=== PATIENT | male | born 1965 | race African-American/Black ===

== ENCOUNTER 2024-08-31 16:36 | Inpatient (IN) | payer OTHER ==
[~2024-08-31] VITALS: Ht 182.9 cm; Wt 114.0 kg
[~2024-08-31 16:36] MED LIST: ATOR40TA52 PO; BRIM0.2S17 EACHEYE; BUME2TAB5 PO; CARB0.5D28 EACHEYE; CARV3.1240 PO; DORZ2SOL18 EACHEYE; EMPA1TAB PO; LATA0.008 EACHEYE; MESA400C5 PO; PANT40T PO; SACU1TAB4 PO; SPIR25TA8 PO
--- NOTE | 2024-08-31 17:22 | ED.PDOC ---
History of Present Illness HPI Comments 59 y/o morbidly obese M is [id number] ambulance for c/o nonradiating, substernal chest pain, shortness of breath, nausea, and vomiting, today. Patient reports on sudden and unprovoked onset of 4/10, pressure-like pain, this afternoon, while at rest. Per EMS, patient received 324mg ASA and 1x NTG. He has a reported history of UT, HTN, CHF, CVA, CKD, chronic ulcerative colitis, and cholecystectomy. Patient denies any palpitations, abdominal pain, diarrhea, cough, congestion, fever, chills, or other associated symptoms or modifiers at this time. Time Seen by MD: 16:40 Reviewed Notes: Nurses Notes, Tax Audit Manager Notes, Medications, Allergies Information Source: Patient, Emergency Med Personnel Mode of Arrival: EMS Severity: Moderate Timing: Hours Duration: Since onset Prehospital treatment: 12 Lead EKG, ASA, Residential Door Installer, NTG Past Medical History PAST MEDICAL HISTORY: CHF, CKF, HTN, UT Past Medical History (Other): chronic ulcerative colitis morbid obesity Surgical History: Cholecystectomy, Tonsillectomy Surgical History (Other): eye surgery Family History Family History: No family hx of Cancer, No family hx of DM, No family hx of H eart williams, No family hx of HTN, No family hx ofKidney williams, No family hx of Liver williams, No family hx of Lung williams, No family hx of Stroke Family History (Other): autoimmune disease Social History Smoker: Non-Smoker Alcohol: Occasionally Drugs: Marijuana Lives In: Home Constitutional: denies: chills, diaphoresis, fatigue, fever, malaise, sweats, weakness, others EENTM: denies: blurred vision, double vision, ear bleeding, ear discharge, ear drainage, ear pain, ear ringing, eye pain, eye redness, hearing loss, mouth pain, mouth swelling, nasal discharge, nose bleeding, nose congestion, nose pain, photophobia, tearing, throat pain, throat swelling, voice changes, others Respiratory: reports: shortness of breath; denies: cough, hemoptysis, orthopnea, SOB at rest, SOB with excertion, stridor, wheezing, others Cardiovascular: reports: chest pain; denies: dizzy spells, diaphoresis, Dyspnea on exertion, edema, irregular heart beat, left arm pain, lightheadedness, palpitations, PND, syncope, others Gastrointestinal: reports: nausea, vomiting; denies: abdomen distended, abdominal pain, blood streaked bowels, constipated, diarrhea, dysphagia, difficulty swallowing, hematemesis, melena, poor appetite, poor fluid intake, rectal bleeding, rectal pain, others Genitourinary: denies: burning, dysuria, flank pain, frequency, hematuria, incontinence, penile discharge, penile sore, pain, testicle pain, testicle swelling, urgency, others Neurological: denies: dizziness, fainting, headache, left sided numbness, left sided weakness, numbness, paresthesia, pre-existing deficit, right sided numbness, right sided weakness, seizure, speech problems, tingling, tremors, weakness, others Musculoskeletal: denies: back pain, gout, joint pain, joint swelling, muscle pain, muscle stiffness, neck pain, others Integumetry: denies: bruises, change in color, change in hair/nails, dryness, laceration, lesions, lumps, rash, wounds, others Allergic/Immunocompromised: denies: Difficulty Healing, Frequent Infections, Hives, Itching, others Hematologic/Lymphatic: denies: anemia, blood clots, easy bleeding, easy bruising, swollen glands, others Endocrine: denies: excessive hunger, excessive sweating, excessive thirst, excessive urination, flushing, intolerance to cold, intolerance to heat, unexplained weight gain, unexplained weight loss, others Psychiatric: denies: anxiety, bipolar disorder, depression, hopeless, panic disorder, schizophrenia, sleepless, suicidal, others All Other Systems: Reviewed and Negative Physical Exam General Appearance: Moderate Distress HEENT: Normal ENT Inspection, Pharynx Normal, TMs Normal Neck: Full Range of Motion, Non-Tender, Normal, Normal Inspection Respiratory: Chest Non-Tender, Lungs Clear, No Accessory Muscle Use, No Respiratory Distress, Normal Breath Sounds Cardiovascular: No Edema, No JVD, No Murmur, No Gallop, Normal Peripheral Pulses, Regular Rate/Rhythm Breast Exam: Deferred Gastrointestinal: No Organomegaly, Non Tender, No Pulsatile Mass, Normal Bowel Sounds, Soft Genitalia: Deferred Pelvic: Deferred Rectal: Deferred Extremities: No calf tenderness, Normal capillary refill, Normal inspection, Normal range of motion, Non-tender, No pedal edema Musculoskeletal : Apperance: Normal Neurologic: Alert, customizer II-XII nml as Tested, Motor Weakness, Normal Affect, Normal Mood, No Sensory Deficits Cerebellar Function: Normal Reflexes: Normal Skin: Dry, Normal Color, Warm Lymphatic: No Adenopathy Was a procedure done? Was a procedure done?: No EKG EKG : Pulse Rate (adult): 79 [place]: Normal Cardiac Rhythm: NSR Block: None Hypertrophy: None ST: Normal Differential Dx Considerations may include: UT, PE, ACS, PNA, URI, CHF exacerbation, musculoskeletal pain, gastritis, costochondritis, angina, anxiety, among others X-Ray, Labs, Meds, VS Vital Signs Date Time Temp Pulse Resp B/P (MAP) Pulse Ox O2 Delivery O2 Flow Rate FiO2 08/31/24 17:34 75 08/31/24 17:22 79 08/31/24 16:41 98.0 79 24 147/94 (111) 98 98.0 08/31/24 16:40 79 Lab Test 08/31/24 18:39 08/31/24 17:29 Range/Units Troponin I High Sensitivity 9 7 </=54 ng/L White Blood Count 7.0 4.4-10.8 10^3/uL Red Blood Count 4.14 L 4.5-5.90 10^6/uL Hemoglobin 12.8 L 13.5-17.5 g/dL Hematocrit 38.1 L 41.0-53.0 % Mean Corpuscular Volume 92.1 80.0-100.0 fL Mean Corpuscular Hemoglobin 31.0 28.0-32.0 pg Mean Corpuscular Hemoglobin Concent 33.7 32.0-36.0 g/dL Red Cell Distribution Width 15.0 H 11.8-14.3 % Platelet Count 268 140-450 10^3/uL Mean Platelet Volume 8.1 6.9-10.8 fL Neutrophils (%) (Auto) 47.3 37.0-80.0 % Lymphocytes (%) (Auto) 35.4 10.0-50.0 % Monocytes (%) (Auto) 14.0 H 0.0-12.0 % Eosinophils (%) (Auto) 2.8 0.0-7.0 % Basophils (%) (Auto) 0.5 0.0-2.0 % Neutrophils # (Auto) 3.3 1.6-8.6 10 ^3/uL Lymphocytes # (Auto) 2.5 0.4-5.4 10 ^3/uL Monocytes # (Auto) 1.0 0-1.3 10 ^3/uL Eosinophils # (Auto) 0.2 0-0.8 10 ^3/uL Basophils # (Auto) 0 0-0.2 10 ^3/uL Nucleated Red Blood Cells 0.0 % Sodium Level 135 L 136-145 mmol/L Potassium Level 4.4 3.5-5.1 mmol/L Chloride Level 102 98-107 mmol/L Carbon Dioxide Level 23 20-31 mmol/L Anion Gap 10 5-15 Blood Urea Nitrogen 17 9-23 mg/dL Creatinine 1.65 H 0.700-1.30 mg/dL Glomerular Filtration Rate Calc 47 >90 mL/min BUN/Creatinine Ratio 10.3 10.0-20.0 Serum Glucose 122 H 74-106 mg/dL Calcium Level 10.2 8.7-10.4 mg/dL B-Type Natriuretic Peptide 12.29 0-100 pg/mL IV Hep-Lock was established The chest x-ray shows: IMPRESSION: 1. Left ventricle appears to be enlarged The CBC is within normal limits The chemistry panel shows a creatinine of 1.65 The rest of the CBC and chemistry panel are within normal limits The troponin levels x2 is negative The BNP is within normal limits. At this time, the patient was being admitted to the hospitalist A cardiology consult will be obtained Images Reviewed?: Images reviewed and evaluated by me Time of 1ST Reevaluation: 17:10 Reevaluation 1ST: Unchanged Patient Education/Counseling: Diagnosis, Treatment, Prognosis Family Education/Counseling: No Family Present Departure 1 Departure Time of Disposition: 19:42 Impression: Primary Impression: Acute myocardial ischemia Disposition: 09 ADMITTED INPATIENT Admit to: Tele Condition: Fair Critical Care Note Critical Care Time?: Yes (45 min-critical care time only) Stability Stability form required: Yes Unstable for transfer: Telemetry monitoring (Telemetry monitoring required), ED Physician Assesment (Clinical assesment) Heart Score Heart Score: Heart Score Response (Comments) Value History Highly Suspicious 2 EKG Normal 0 Age 45-64 1 Risk Factors >3 or Hx ASHD 2 Troponin Normal limit 0 Total 5 I personally scribed for MIKE YAN MD ([email or web address]) on 08/31/24 at 17:22. Electronically submitted by Ronak Currie ([email or web address]). MIKE YAN MD Aug 31, 2024 17:22
[2024-08-31 18:02] LABS: Basophils # (auto) 0 10 ^3/uL (0-0.2); Basophils % (auto) 0.5 % (0.0-2.0); Eosinophils # (auto) 0.2 10 ^3/uL (0-0.8); Eosinophils % (auto) 2.8 % (0.0-7.0); Hematocrit 38.1 % (41.0-53.0); Hemoglobin 12.8 g/dL (13.5-17.5); Lymphocytes # (auto) 2.5 10 ^3/uL (0.4-5.4); Lymphocytes % (auto) 35.4 % (10.0-50.0); Mean Corpuscular Hgb Conc. 33.7 g/dL (32.0-36.0); Mean Corpuscular Volume 92.1 fL (80.0-100.0); Neutrophils # (auto) 3.3 10 ^3/uL (1.6-8.6); Neutrophils % (auto) 47.3 % (37.0-80.0); Platelet Count (auto) 268 10^3/uL (140-450); Red Blood Cells 4.14 10^6/uL (4.5-5.90)
[2024-08-31 18:10] LABS: Calcium 10.2 mg/dL (8.7-10.4); Chloride 102 mmol/L (98-107); Potassium 4.4 mmol/L (3.5-5.1)
[2024-08-31 18:11] LABS: Anion Gap 10 (5-15); Carbon Dioxide 23 mmol/L (20-31)
[2024-08-31 18:16] LABS: BUN/Creatinine Ratio 10.3 (10.0-20.0); Blood Urea Nitrogen 17 mg/dL (9-23)
[2024-08-31 18:27] LABS: Glucose 122 mg/dL (74-106); Sodium 135 mmol/L (136-145)
--- NOTE | 2024-08-31 18:28 | DVH ---
CHEST RADIOGRAPH Indication: cp Technique: Single frontal view of the chest was obtained Comparison: None FINDINGS: Heart size is normal but there is prominent left ventricle. There are no infiltrates or effusions. P ulmonary vasculature are within normal limits. Mediastinum is unremarkable : IMPRESSION: 1. Left ventricle appears to be enlarged
[2024-08-31 22:11] LABS: Urine Bacteria None Seen /hpf (None Seen)
[2024-08-31 22:17] LABS: Urine Blood Negative /uL (Negative); Urine Clarity Clear (Clear); Urine Color Yellow (Yellow); Urine Protein, UAD TRACE (Negative); Urine Specific Gravity 1.026 (1.001-1.035); Urine Squamous Epithelial Cell None Seen /hpf (<5); Urine Urobilinogen 2 mg/dL (Negative); Urine WBC 1 /HPF (0-3)
[2024-08-31 22:32] LABS: Cannabinoid Screen, Urine Pos (NEGATIVE)
[2024-08-31 22:35] LABS: Amphetamine Screen, Urine Neg (NEGATIVE); Barbiturate Scree,Urine Neg (NEGATIVE); Benzodiazephine Screen, Urine Neg (NEGATIVE); Cocaine Screen, Urine Neg (NEGATIVE); Opiate Scree,Urine Neg (NEGATIVE); Phencyclidine Screen, Urine Neg (NEGATIVE)
[2024-08-31] MEDS ORDERED: LORazepam 0.5 MG TAB PO PRN (23:00)
[2024-08-31] MEDS ORDERED: ACETAMINOPHEN 325 MG TAB PO PRN (23:00)
[2024-08-31] MEDS ORDERED: NITROGLYCERIN 0.4 MG SL TAB SL PRN (23:00)
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
[2024-08-31 23:34] LABS: Albumin 4.7 g/dL (3.2-4.8); Bilirubin, Direct 0.2 mg/dL (<0.3); Magnesium 2.2 mg/dL (1.6-2.6); Phosphorus 2.7 mg/dL (2.4-5.1)
[2024-08-31 23:35] LABS: Bilirubin, Total 0.7 mg/dL (0.2-1.0)
[2024-08-31 23:46] LABS: Total Protein 8.3 g/dL (5.7-8.2)
[2024-09-01] VITALS (7 sets, daily range): BP systolic 167; BP diastolic 77; PULSE 62–70; RESP 14–23; TEMP 97.7; O2SAT 93–98
[2024-09-01] MEDS: MORPHINE SULFATE INJ 2 MG/ml SYRG IV PRN ×2 (00:40→19:48)
[2024-09-01] MEDS: ONDANSETRON HCL 4 MG/2 ML VIAL IV PRN (00:40)
[2024-09-01] MEDS: TIMOLOL MALEATE 0.25 % OPTH SOL 5ML EACHEYE ONE (00:58)
[2024-09-01] MEDS: DORZOLAMIDE HCL 2% OPTH(EYE) SOL 10ML EACHEYE ONE (00:58)
[2024-09-01] MEDS: PANTOPRAZOLE 40 MG/10 ML VIAL INJ IV ONE (00:58)
[2024-09-01] MEDS: ENOXAPARIN SOD 100 MG/1 ML SYRINGE SC ONE (00:58)
[2024-09-01] MEDS: ATORVASTATIN 20 MG TAB PO ONE (00:59)
[2024-09-01 05:41] LABS: Basophils # (auto) 0 10 ^3/uL (0-0.2); Basophils % (auto) 0.5 % (0.0-2.0); Eosinophils # (auto) 0.2 10 ^3/uL (0-0.8); Eosinophils % (auto) 3.2 % (0.0-7.0); Hematocrit 35.5 % (41.0-53.0); Hemoglobin 11.6 g/dL (13.5-17.5); Lymphocytes # (auto) 2.8 10 ^3/uL (0.4-5.4); Lymphocytes % (auto) 40.2 % (10.0-50.0); Mean Corpuscular Hemoglobin 30.1 pg (28.0-32.0); Mean Corpuscular Hgb Conc. 32.5 g/dL (32.0-36.0); Mean Corpuscular Volume 92.5 fL (80.0-100.0); Monocytes % (auto) 14.2 % (0.0-12.0); Neutrophils # (auto) 2.9 10 ^3/uL (1.6-8.6); Neutrophils % (auto) 41.9 % (37.0-80.0); Nucleated Red Blood Cells % 0.2 %; Platelet Count (auto) 223 10^3/uL (140-450); Red Blood Cells 3.84 10^6/uL (4.5-5.90); Red Cell Distribution Width 14.6 % (11.8-14.3)
[2024-09-01 05:56] LABS: INR 2.86 (0.9-1.15); Partial Thromboplastin Time 48.8 SEC (24.5-34.5); Prothrombin Time 27.3 sec (9.3-11.8)
[2024-09-01] MEDS: DORZOLAMIDE HCL 2% OPTH(EYE) SOL 10ML EACHEYE SCH (06:00)
[2024-09-01 06:07] LABS: Alanine Aminotransferase 26 U/L (7-40); Alkaline Phosphatase 96 U/L (46-116); Anion Gap 9 (5-15); Blood Urea Nitrogen 21 mg/dL (9-23); Calcium 9.4 mg/dL (8.7-10.4); Carbon Dioxide 25 mmol/L (20-31); Chloride 102 mmol/L (98-107); Glucose 100 mg/dL (74-106)
[2024-09-01 06:08] LABS: Albumin 3.9 g/dL (3.2-4.8); Aspartate Aminotransferase 21 U/L (13-40)
[2024-09-01 06:09] LABS: Bilirubin, Total 0.9 mg/dL (0.2-1.0); Sodium 136 mmol/L (136-145)
[2024-09-01] MEDS ORDERED: ONDANSETRON HCL 4 MG/2 ML VIAL IV PRN (10:00)
[2024-09-01] MEDS ORDERED: LOPERAMIDE HCL 2 MG CAP/TAB PO ONE (10:15)
[2024-09-01] MEDS: SACUBITRIL-VALSARTAN 24mg/26mg TAB PO SCH (10:19)
[2024-09-01] MEDS: hydrALAZINE HCL 25 MG TAB PO SCH (10:58)
[2024-09-01] MEDS: CARVEDILOL 12.5 MG TAB PO ONE (10:58)
[2024-09-01] MEDS: ENOXAPARIN SOD 100 MG/1 ML SYRINGE SC SCH (10:59)
[2024-09-01] MEDS: TIMOLOL MALEATE 0.25 % OPTH SOL 5ML EACHEYE SCH (10:59)
[2024-09-01] MEDS: PANTOPRAZOLE 40 MG/10 ML VIAL INJ IV SCH (10:59)
[2024-09-01] MEDS: ONDANSETRON HCL 4 MG/2 ML VIAL IV ONE (10:59)
[2024-09-01] MEDS: SPIRONOLACTONE 25 MG TAB PO SCH (10:59)
[2024-09-01] MEDS: MESALAMINE 400mg Delayed Release Cap PO SCH (11:00)
[2024-09-01] MEDS: ERGOCALCIFEROL 50,000 UNIT(1.25MG) CAP PO SCH (12:37)
[2024-09-01] MEDS: SODIUM CHLORIDE 0.9% 250 ML IV ONE (13:17)
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
[2024-09-01] MEDS: BACLOFEN 10 MG TAB PO ONE (17:55)
[2024-09-01] MEDS: BACLOFEN 10 MG TAB PO PRN (19:40)
[2024-09-01] MEDS: LATANOPROST 0.005 % OPTH(EYE) SOL 2.5ML EACHEYE SCH (22:00)
[2024-09-02] VITALS (10 sets, daily range): BP systolic 106–136; BP diastolic 40–69; PULSE 44–80; RESP 16–18; TEMP 36.6; O2SAT 94–99
[2024-09-02] MEDS ORDERED: WARF-66 PO (00:05)
[2024-09-02] MEDS ORDERED: [UNRECOGNIZED DRUG - CODE] EX (00:05)
[2024-09-02] MEDS ORDERED: MULT-1047 PO (00:05)
[2024-09-02] MEDS ORDERED: CARV25TA55 PO (00:05)
[2024-09-02] MEDS ORDERED: HYDR25TA88 PO (00:05)
[2024-09-02] MEDS: CARVEDILOL 12.5 MG TAB PO SCH (00:41)
[2024-09-02] MEDS: ATORVASTATIN 20 MG TAB PO SCH (00:44)
[2024-09-02] MEDS: DOCUSATE SOD 100 MG CAP PO ONE (07:03)
[2024-09-02 08:11] LABS: Basophils # (auto) 0 10 ^3/uL (0-0.2); Basophils % (auto) 0.5 % (0.0-2.0); Eosinophils # (auto) 0.2 10 ^3/uL (0-0.8); Hematocrit 39.4 % (41.0-53.0); Hemoglobin 12.7 g/dL (13.5-17.5); Lymphocytes # (auto) 2.1 10 ^3/uL (0.4-5.4); Lymphocytes % (auto) 34.3 % (10.0-50.0); Mean Corpuscular Hemoglobin 30.5 pg (28.0-32.0); Mean Corpuscular Hgb Conc. 32.3 g/dL (32.0-36.0); Mean Corpuscular Volume 94.6 fL (80.0-100.0); Monocytes # (auto) 0.6 10 ^3/uL (0-1.3); Monocytes % (auto) 10.4 % (0.0-12.0); Neutrophils # (auto) 3.1 10 ^3/uL (1.6-8.6); Neutrophils % (auto) 50.8 % (37.0-80.0); Nucleated Red Blood Cells % 0.1 %; Platelet Count (auto) 225 10^3/uL (140-450); Red Blood Cells 4.16 10^6/uL (4.5-5.90); Red Cell Distribution Width 14.9 % (11.8-14.3); White Blood Cell 6.1 10^3/uL (4.4-10.8)
[2024-09-02 08:27] LABS: Albumin 4.2 g/dL (3.2-4.8); Anion Gap 9 (5-15); BUN/Creatinine Ratio 11.8 (10.0-20.0); Blood Urea Nitrogen 18 mg/dL (9-23); Calcium 10.1 mg/dL (8.7-10.4); Carbon Dioxide 24 mmol/L (20-31); Chloride 102 mmol/L (98-107); Glucose 102 mg/dL (74-106); Potassium 4.7 mmol/L (3.5-5.1); Total Protein 7.2 g/dL (5.7-8.2)
[2024-09-02 08:28] LABS: Alanine Aminotransferase 55 U/L (7-40); Alkaline Phosphatase 119 U/L (46-116); Aspartate Aminotransferase 52 U/L (13-40); Bilirubin, Total 1.2 mg/dL (0.2-1.0); Sodium 135 mmol/L (136-145)
--- NOTE | 2024-09-02 11:29 | ECG ---
[facility] Test Date: 2024-08-31 Test Time: 16:40:26 Pat Name: Isidro Heath Department: ED Room: 0298T A Gender: M Early Childhood Coordinator: elo : 1965 Requested By: MIKE YAN Order Number: [id number] Reading MD: Kilo Quintana Measurements Intervals [place] Rate: 79 P: 44 PA: 160 QRS: -63 QRSD: 94 T: 55 QT: 386 QTc: 443 Interpretive Statements Sinus rhythm Inferior infarct, old, LEFT AXIS DEVIATION Abnormal lateral Q waves Anterior infarct, old Electronically Signed On 09-03-2024 13:41:41 PDT by Kilo Quintana Please click the below link to view image of tracing.
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
--- NOTE | 2024-09-02 13:14 | DVHSR ---
APPROVED REPORT EXAM: Two-dimensional and M-mode echocardiogram with Doppler and color Doppler. Blood Pressure: 135/68 mmHg INDICATION CHF RISK FACTORS Height: 71, Weight: 229 DIMENSIONS LVDd4.7 (3.8-5.7cm)LA (2D)4.1 (1.9-4.0cm)Aortic Root3.7 (2.0-3.7cm) LVDs3.0 (2.5-4.0cm)LA (MM) (1.9-4.0cm)Aortic Cusp Exc2.2 (1.5-2.0cm) EF (%) 65.0 (55-70%)Rt. Atrium4.3 (1.9-4.0cm)Asc. Aorta cm IVSd1.4 (0.7-1.1cm)RV (D) (1.8-2.4cm) PWd1.3 (0.7-1.1cm) Mitral Valve MitralMitral Stenosis E wave0.78m/sMV Mean GR.2mmHg A wave0.94m/sMV Peak GR.105mmHg E/A ratio0.82D MVAcm2 DECEL [id number] 1/2 [id number] IVRTmsDop MVA1.97cm2 Aortic Valve Aortic ValveAortic Stenosis V11.17m/Ibrahima Mean GR.5mmHg V21.55m/Ibrahima Peak GR.10mmHg LVOT Diameter2.4 (1.8-2.4cm)Doppler AVA3.41cm2 AI P 1/2 Fnct942.12ms Pulmonic Valve V21.12m/s Tricuspid Valve TR Velocity2.21m/s [id number] Conclusion Technically good study. Sinus rhythm. Concentric LVH with left atrial enlargement. Valves appear to be structurally normal. EF of 55-60% with normal RV function. Mild aortic insufficiency. No pericardial effusion masses or vegetations.
[2024-09-02] MEDS: METOCLOPRAMIDE HCL 5MG/ml INJ 2ml VIAL IV ONE (14:22)
--- NOTE | 2024-09-02 15:04 | ECG ---
[facility] Test Date: 2024-08-31 Test Time: 17:34:11 Pat Name: Isidro Heath Department: ER Room: 0298T A Gender: M Attache: GP : 1965 Requested By: MIKE YAN Order Number: [id number] Reading MD: Kilo Quintana Measurements Intervals [place] Rate: 75 P: 47 AR: 150 QRS: -50 QRSD: 100 T: -24 QT: 388 QTc: 434 Interpretive Statements Sinus rhythm LAD, consider left anterior fascicular block Probable anterolateral infarct, old Baseline wander in lead(s) V1,V2,V3,V4,V5 Electronically Signed On 09-03-2024 13:41:49 PDT by Kilo Quintana Please click the below link to view image of tracing.
[2024-09-03] MEDS ORDERED: DOCUSATE SOD 100 MG CAP PO PRN (10:00)
== END 2024-09-02 15:36 | disposition home or self-care (01) | DRG 203 ==
LOC: EDBD 16:36 → ER 16:36 → OVERFLOW 22:49 → TELE-WESTW 09-01 22:03
PROVIDERS: ADMIT Student in an Organized Health Care Education/Training Program; ATTEND Student in an Organized Health Care Education/Training Program
PROC: 5A09357 Assistance with Respiratory Ventilation, Less than 24 Consecutive Hours, Continuous Positive Airway Pressure (ICD-10-PCS; principal; 2024-09-01)
PROC: 5A09357 Assistance with Respiratory Ventilation, Less than 24 Consecutive Hours, Continuous Positive Airway Pressure (ICD-10-PCS; 2024-09-02)
DX: M94.0 Chondrocostal junction syndrome [Tietze] (principal); N17.0 Acute kidney failure with tubular necrosis; I42.8 Other cardiomyopathies; I13.0 Hypertensive heart and chronic kidney disease with heart failure and stage 1 through stage 4 chronic kidney disease, or unspecified chronic kidney disease; K44.9 Diaphragmatic hernia without obstruction or gangrene; K51.90 Ulcerative colitis, unspecified, without complications; I50.22 Chronic systolic (congestive) heart failure; N18.30 Chronic kidney disease, stage 3 unspecified; G47.33 Obstructive sleep apnea (adult) (pediatric); I25.10 Atherosclerotic heart disease of native coronary artery without angina pectoris; E66.01 Morbid (severe) obesity due to excess calories; E55.9 Vitamin D deficiency, unspecified; H40.9 Unspecified glaucoma; E78.5 Hyperlipidemia, unspecified; Z60.2 Problems related to living alone; I25.2 Old myocardial infarction; Z86.73 Personal history of transient ischemic attack (TIA), and cerebral infarction without residual deficits; Z90.49 Acquired absence of other specified parts of digestive tract; Z79.899 Other long term (current) drug therapy; Z85.528 Personal history of other malignant neoplasm of kidney; Z59.00 Homelessness unspecified
CPT/HCPCS: 36415; 71045; 80048; 80053; 80061; 80076; 80307; 81001; 82306; 82607; 83036; 83735; 83880; 84100; 84443; 84484; 85025; 85610; 85730; 93005; 93306; 94660; 99291; G0378; J2405; J2470

== ENCOUNTER 2025-05-11 20:10 | Inpatient (IN) | payer OTHER ==
[~2025-05-11] VITALS: Ht 182.9 cm; Wt 117.7 kg
[~2025-05-11 20:10] MED LIST changes: +CARV25TA55 PO; +ERGO1CAP12 PO; +FURO1TAB31 PO; +HYDR25TA88 PO; +METH4PAK PO; +METO25TA93 PO; +MULT-1047 PO; +WARF-66 PO; +[UNRECOGNIZED DRUG - CODE] EX
[2025-05-12] VITALS (7 sets, daily range): BP systolic 118–150; BP diastolic 71–85; PULSE 61–106; RESP 15–20; TEMP 97.3–98.1; O2SAT 93–97
--- NOTE | 2025-05-12 00:34 | ED.PDOC ---
History of Present Illness HPI Comments 60-year-old male who presents with chief complaint of lower abdominal pain, with the associated nausea, vomiting, fever, and chest wall pain. Pertinent history of chronic ulcerative colitis. Patient endorses on sudden onset of symptoms after having a bowel movement, yesterday morning, at 11:00 a.m.. Patient has a 7.5/10 in severity. Patient reports taking medication for nausea [facility] arrival. He denies on having any current nausea, bloody or bilious vomitus, diarrhea, or further acute symptoms. REVIEW OF SYSTEMS: General: Fever, no chills, or fatigue HEENT: No sore throat, no earache, no congestion, no neck pain. Cardiac: Chest pain. No palpitations. Lungs: No shortness of breath, no cough. GI: Abdominal pain, nausea, vomiting, no diarrhea : No dysuria, frequency, or urgency. No hematuria. Musculoskeletal: No joint pain , no joint swelling, no extremity edema. Skin: No rash, no itching. Neuro: No headache, no dizziness, no weakness (And as stated in HPI) PHYSICAL EXAM: General: Awake, alert and oriented. No acute distress. Skin: Skin in warm, dry and intact. Appropriate color for ethnicity. HEENT: The head is normocephalic and atraumatic. Conjunctivae are clear without exudates or hemorrhage. Sclera is non-icteric. Eyelids are normal in appearance without swelling or lesions. Oral mucosa is pink and moist Neck: The neck is supple with normal range of motion. No JVD. Cardiac: Heart rate and rhythm are normal. No murmurs, gallops, or rubs are auscultated. Respiratory: No signs of respiratory distress. Lung sounds are clear in all lobes bilaterally without rales, rhonchi, or wheezes. Abdominal: Lower abdomen tenderness. Otherwise remaining abdomen is soft, nontender, without distention, guarding or rigidity. Bowel sounds are present and normoactive in all four quadrants. Extremities: Lower extremities without edema. Neurological: The patient is awake, alert and oriented to person, place, and time with normal speech. Speech is clear. There is no facial asymmetry. Psychiatric: Appropriate mood and affect. Good judgement and insight. Chief Complaint: Abdominal Pain Time Seen by MD: 23:44 Reviewed Notes: Nurses Notes, Medications, Allergies Allergies: Coded Allergies: No Known Drug Allergy (Verified Allergy, Unknown, 09/09/24) Home Meds Active Scripts Ergocalciferol (Vitamin D) 50,000 Unit Cap, [address] UNIT PO QWEEKLY for 5 Days, #5 CAP Prov:CARLOSWENDY PETERS RESIDENT 03/08/25 Furosemide (Lasix) 40 Mg Tab, 40 MG PO DAILY for 30 Days, #30 TAB 1 Refill Prov:NANDINI ALVARADO RESIDENT 03/08/25 Metoprolol Succinate (Metoprolol Succinate Er) 25 Mg Tab, 1 TAB PO DAILY for 30 Days, #30 TAB 3 Refills Prov:NANDINI ALVARADO RESIDENT 03/08/25 Methylprednisolone (Medrol Dosepak) 4 Mg Guilherme, 4 MG PO UD, #21 TAB UAD Prov:IRINA ALVARADORA RESIDENT 03/08/25 Reported Medications Empagliflozin (Jardiance) 10 Mg Tab, 10 MG PO DAILY, TAB 10/29/24 Spironolactone (Spironolactone) 25 Mg Tab, 1 TAB PO DAILY, #90 TAB 1 Refill 10/29/24 Sacubitril-Valsartan (Entresto 97-103 mg) 1 Tab Tab, 1 TAB PO BID, TAB 10/29/24 Folic Acid (Folic Acid) 1 Mg Tab, 1 MG PO DAILY for 30 Days, MG 10/29/24 Rivaroxaban (XARELTO) 20 Mg Tab, 20 MG PO DAILY, TAB 10/29/24 Mesalamine (DELZICOL) 400 Mg Cap, 1200 MG PO BID, CAP 10/29/24 Information Source: Patient, Emergency Med Personnel Mode of Arrival: EMS Severity: Moderate Timing: Hours Duration: Since onset Prehospital treatment: 12 Lead EKG, Lead Advisor, Treatment Past Medical History PAST MEDICAL HISTORY: CHF, CVA, High Lipids, HTN Past Medical History (Other): Ulcerative colitis Surgical History: Cholecystectomy, Tonsillectomy Family History Family History: Reviewed,noncontributory to illness, Unknown Social History Smoker: Non-Smoker Alcohol: Occasionally Drugs: Marijuana Lives In: Home Was a procedure done? Was a procedure done?: No Differential Dx Considerations may include: Differential diagnoses considered include: Abdominal aortic aneurysm, DC, esophageal rupture, intestinal obstruction, mesenteric ischemia, perforated viscus or solid organ rupture, CHF with hepatomegaly, pneumonia, abscess, appendicitis, biliary disease, diverticulitis, gastritis, gastroenteritis, hepatitis, hernia, inflammatory bowel disease, pancreatitis, peptic ulcer disease, urinary tract infection, ureteral colic, ulcerative colitis, constipation, GERD, irritable syndrome, abdominal wall pain, nonspecific abdominal pain, herpes zoster, nephrolithiasis. [ ]Also ruptured ectopic , ovarian torsion/cyst, tubo-ovarian abscess, PID, endometriosis, mittleschmerz. X-Ray, Labs, Meds, VS Vital Signs Date Time Temp Pulse Resp B/P (MAP) Pulse Ox O2 Delivery O2 Flow Rate FiO2 05/12/25 03:23 86 18 156/92 05/11/25 22:41 98.3 93 14 134/81 (98) 96 98.3 05/11/25 20:20 99.7 88 22 115/75 96 99.7 Lab Test 05/12/25 05:43 05/12/25 02:18 05/12/25 00:32 Range/Units White Blood Count Pending 8.4 4.4-10.8 10^3/uL Red Blood Count Pending 4.01 L 4.5-5.90 10^6/uL Hemoglobin Pending 12.4 L 13.5-17.5 g/dL Hematocrit Pending 37.2 L 41.0-53.0 % Mean Corpuscular Volume Pending 92.7 80.0-100.0 fL Mean Corpuscular Hemoglobin Pending 31.0 28.0-32.0 pg Mean Corpuscular Hemoglobin Concent Pending 33.4 32.0-36.0 g/dL Red Cell Distribution Width Pending 14.7 H 11.8-14.3 % Platelet Count Pending 283 140-450 10^3/uL Mean Platelet Volume Pending 7.6 6.9-10.8 fL Neutrophils (%) (Auto) Pending 51.5 37.0-80.0 % Lymphocytes (%) (Auto) Pending 33.3 10.0-50.0 % Monocytes (%) (Auto) Pending 11.0 0.0-12.0 % Basophils (%) (Auto) Pending 1.0 0.0-2.0 % Neutrophils # (Auto) Pending 4.3 1.6-8.6 10 ^3/uL Lymphocytes # (Auto) Pending 2.8 0.4-5.4 10 ^3/uL Monocytes # (Auto) Pending 0.9 0-1.3 10 ^3/uL Sodium Level Pending 134 L 136-145 mmol/L Potassium Level Pending 3.9 3.5-5.1 mmol/L Chloride Level Pending 102 98-107 mmol/L Carbon Dioxide Level Pending 20 20-31 mmol/L Anion Gap Pending 12 5-15 Blood Urea Nitrogen Pending 11 9-23 mg/dL Creatinine Pending 1.44 H 0.700-1.30 mg/dL Glomerular Filtration Rate Calc Pending 55 >90 mL/min BUN/Creatinine Ratio Pending 7.6 L 10.0-20.0 Serum Glucose Pending 118 H 74-106 mg/dL Calcium Level Pending 9.3 8.7-10.4 mg/dL Total Bilirubin Pending Aspartate Amino Transferase (AST) Pending Alanine Aminotransferase (ALT) Pending Alkaline Phosphatase Pending Total Protein Pending Albumin Pending Lactic Acid Level 2.1 *H 2.4 *H 0.4-2.0 mmol/L Eosinophils (%) (Auto) 3.2 0.0-7.0 % Eosinophils # (Auto) 0.3 0-0.8 10 ^3/uL Basophils # (Auto) 0.1 0-0.2 10 ^3/uL Nucleated Red Blood Cells 0.0 % B-Type Natriuretic Peptide Pending Lipase 44 12-53 U/L Current Medications Medications (Trade) Dose Ordered Sig/Estevan Route Start Time Stop Time Status Last Admin Morphine Sulfate 2 mg ONCE ONCE IV 05/12/25 00:30 05/12/25 00:31 DC 05/12/25 03:23 Sodium Chloride (Saline Lock Ns) 10 ml Q8HR IV 05/12/25 06:00 05/12/25 05:[address] [address] Ph: [phone] DIAGNOSTIC IMAGING Diagnostic Imaging Report : [id number] Signed PATIENT: AMEILA PRADO ACCT: [id number] UNIT: [id number] : 1965 LOC: ER ROOM / BED: / AGE / SEX: 60 / M ADM STATUS: REG ER SERVICE ORDERING PHYSICIAN: MALLY CALLAWAY MD PROCEDURE(s): ABPL - CT AB PEL WO CON-NO ORAL OR IV REASON: Lower abdominal pain, diarrhea, history ulcerative colitis ORDER NUMBER(s): [id number], ACCESSION NUMBER(s): [id number] EXAM: CT CT AB PEL WO CON-NO ORAL OR IV HISTORY: Lower abdominal pain, diarrhea, history ulcerative colitis COMPARISON STUDY: CT CT AB PEL WO CON-NO ORAL OR IV on DOS: 03/03/25, CT CT AB PEL WO CON-NO ORAL OR IV on DOS: 11/24/24, CT CT AB PEL WO CON-NO ORAL OR IV on DOS: 09/09/24 TECHNIQUE: Multidetector CT of the abdomen and pelvis was performed from lung bases to pubic symphysis. Imaging was performed without IV contrast. Axial, coronal, and sagittal multiplanar reformats were obtained from the axial data set by the technologist. RADIATION DOSE: CTDI vol 22.6 mGy. DLP 1370.96 mGy.cm FINDINGS: Limited evaluation of the solid organs in the absence of IV contrast. Evaluation is also degraded by motion artifact. Lungs: The lung bases are clear. Liver: Diffuse hypoattenuation of the liver suggestive of hepatic steatosis. Spleen: Unremarkable. Pancreas: Unremarkable. Gallbladder: Prior cholecystectomy. Adrenals: Unremarkable Kidneys: Unremarkable. Pelvic Viscera: Mild prostatomegaly. Vasculature: Unremarkable. Retroperitoneum: Unremarkable. Bowel: Colonic diverticulosis without CT evidence of diverticulitis. No bowel obstruction. Small hiatal hernia. The appendix is normal. Portions of the bowel are decompressed, limiting assessment. Musculoskeletal: Unremarkable. Soft tissues: Tiny fat containing umbilical hernia. IMPRESSION: 1. No acute abdominopelvic abnormality. 2. Incidental findings as detailed. ATED BY: BETSEY GALLAGHER MD DICTATED DATE/TIME: 05/12/25146 SIGNED BY: BETSEY GALLAGHER MD SIGNED DATE/TIME: 05/12/25146 CC: Time of 1ST Reevaluation: 00:33 Reevaluation 1ST: Unchanged Patient Education/Counseling: Other (Need for hospital admission) Family Education/Counseling: No Family Present SEPSIS Sepsis Screen Date sepsis recognized/suspect: May 11, 2025 Time Sepsis recognized/suspect: 2019 Recent Procedure: No On Antibiotic Therapy: No Respiratory Rate >20: No Heart Rate >90: No Temp<36 C (96.8 F) or >38.3 C: No SBP <90 or MAP <65 mmHG: No New Acute Mental Status Change: No Is the patient on CPAP, BIPAP,: No Physician Orders Urinalysis (05/12/25 00:25) Ct Ab Pel Wo Con-No Oral Or Iv (05/12/25 00:25) Complete Blood Count (05/12/25 04:59) Comprehensive Metabolic Panel (05/12/25 04:59) Metoprolol Tartrate Tablet (Lopressor Ta (05/12/25 10:00) Clonidine Hcl Tablet (Catapres Tablet) (05/12/25 05:00) Aspirin Chewable Tablet (05/12/25 10:00) B-Type Natriuretic Peptide (05/12/25 04:59) Allergies (05/12/25 04:59) Code Status (05/12/25 04:59) Sodium Chloride Lock (Saline Lock Ns) (05/12/25 06:00) Oxygen Per Hour (05/12/25 04:59) Hydrocodone-Acet 5/325mg Tab ([place] 5/32 (05/12/25 05:00) Ondansetron Hcl (Zofran) (05/12/25 05:00) Docusate Sodium Capsule (Colace Capsule) (05/12/25 05:00) Complete Blood Count (05/13/25 04:00) Comprehensive Metabolic Panel (05/13/25 04:00) Condition: Serious (05/12/25 04:59) Acetaminophen Tablet (Tylenol Tablet) (05/12/25 05:00) Clear Liq Diet (05/12/25 Breakfast) Bedrest With Bathroom Privileg (05/12/25 04:59) Maintain Bed Rest (05/12/25 04:59) Sequential Compression Device (05/12/25 ) Vital Signs Date Time Temp Pulse Resp B/P (MAP) Pulse Ox O2 Delivery O2 Flow Rate FiO2 05/12/25 03:23 86 18 156/92 05/11/25 22:41 98.3 93 14 134/81 (98) 96 98.3 05/11/25 20:20 99.7 88 22 115/75 96 99.7 Laboratory Tests Test 05/12/25 00:32 05/12/25 02:18 05/12/25 05:43 Lactic Acid Level 2.4 mmol/L (0.4-2.0) *H 2.1 mmol/L (0.4-2.0) *H White Blood Count 8.4 10^3/uL (4.4-10.8) Pending Medications Medications Dose Ordered Sig/Estevan Route Start Time Stop Time Status Last Admin Dose Admin Morphine Sulfate 2 mg ONCE ONCE IV 05/12/25 00:30 05/12/25 00:31 DC 05/12/25 03:23 Sodium Chloride 10 ml Q8HR IV 05/12/25 06:00 05/12/25 05:17 Departure 1 Departure Time of Disposition: 03:24 Impression: Primary Impression: Acute ulcerative colitis Disposition: ADMITTED INPATIENT Condition: Stable Comments MDM: Extensive evaluation was performed in attempt to identify or rule out: (See differential diagnosis section) The following tests were ordered, and results were reviewed by me and discussed with patient: (See diagnostic results section) The following test were independently interpreted by me: N lipase, lactic acid reflux, CBC, UA, BMP I reviewed and agreed with the following test results read by other providers: CT abdomen and pelvis without contrast I reviewed the following notes from the pt's past medical encounters: March 03, 2025 encounter for ulcer colitis flare-up Additional information was gathered from interviewing the following independent historians: N/A Discussion of management or test interpretation with external physician/other qualified health home health care physician: N/A Addressed [ ]one or more chronic illnesses with severe exacerbation, progression, or side effects of treatment: [ ]an acute or chronic illness that poses a threat to life or bodily function: [ ] Decision regarding hospitalization or escalation of hospital level of care: Risk and benefits of admission for further treatment of patient's condition was considered. Due to patient's current clinical condition, high risk of decline and poor outcome if discharged and need for further inpatient management and monitoring, patient will be admitted to the hospital. Drug therapy requiring intensive monitoring for toxicity: N/A Parenteral controlled substances: N/A Decision regarding elective major surgery with identified patient or procedure risk factors: N/A Decision regarding emergency major surgery: N/A Decision not to resuscitate or to de-escalate care because of poor prognosis: N/A Diagnosis or treatment significantly limited by social determinants of health: N/A Decision regarding hospitalization or escalation of hospital level of care: Risks and benefits of admission for further treatment of patient's condition was considered however due to patient's stable condition patient will be discharged to follow up closely or return to care for worsening of condition or inability to follow up. Critical Care Note Critical Care Time?: No Stability Stability form required: No Heart Score Heart Score: Heart Score Response (Comments) Value History N/A 0 EKG N/A 0 Age N/A 0 Risk Factors N/A 0 Troponin N/A 0 Total 0 I personally scribed for MALLY CALLAWAY MD ([email or web address]) on 05/12/25 at 00:34. Electronically submitted by Ronak Currie ([email or web address]). I personally scribed for MALLY CALLAWAY MD ([email or web address]) on 05/12/25 at 05:58. Electronically submitted by Ronak Currie ([email or web address]). MALLY CALLAWAY MD May 12, 2025 00:34
[2025-05-12 00:49] LABS: Hematocrit 37.2 % (41.0-53.0); Hemoglobin 12.4 g/dL (13.5-17.5); Mean Corpuscular Hemoglobin 31.0 pg (28.0-32.0); Mean Corpuscular Volume 92.7 fL (80.0-100.0); Nucleated Red Blood Cells % 0.0 %
[2025-05-12 00:57] LABS: Chloride 102 mmol/L (98-107); Potassium 3.9 mmol/L (3.5-5.1)
[2025-05-12 00:58] LABS: Anion Gap 12 (5-15)
[2025-05-12 00:59] LABS: Calcium 9.3 mg/dL (8.7-10.4); Carbon Dioxide 20 mmol/L (20-31); Sodium 134 mmol/L (136-145)
[2025-05-12 01:03] LABS: BUN/Creatinine Ratio 7.6 (10.0-20.0); Blood Urea Nitrogen 11 mg/dL (9-23)
[2025-05-12 01:04] LABS: Lipase 44 U/L (12-53)
[2025-05-12 01:15] LABS: Glucose 118 mg/dL (74-106)
[2025-05-12 01:16] LABS: Lactic Acid w/Reflex 2.4 mmol/L (0.4-2.0)
--- NOTE | 2025-05-12 01:49 | DVH ---
EXAM: CT CT AB PEL WO CON-NO ORAL OR IV HISTORY: Lower abdominal pain, diarrhea, history ulcerative colitis COMPARISON STUDY: CT CT AB PEL WO CON-NO ORAL OR IV on DOS: 03/03/25, CT CT AB PEL WO CON-NO ORAL OR IV on DOS: 11/24/24, CT CT AB PEL WO CON-NO ORAL OR IV on DOS: 09/09/24 TECHNIQUE: Multidetector CT of the abdomen and pelvis was performed from lung bases to pubic symphysis. Imaging was performed without IV contrast. Axial, coronal, and sagittal multiplanar reformats were obtained from the axial data set by the technologist. RADIATION DOSE: CTDI vol 22.6 mGy. DLP 1370.96 mGy.cm FINDINGS: Limited evaluation of the solid organs in the absence of IV contrast. Evaluation is also degraded by motion artifact. Lungs: The lung bases are clear. Liver: Diffuse hypoattenuation of the liver suggestive of hepatic steatosis. Spleen: Unremarkable. Pancreas: Unremarkable. Gallbladder: Prior cholecystectomy. Adrenals: Unremarkable Kidneys: Unremarkable. Pelvic Viscera: Mild prostatomegaly. Vasculature: Unremarkable. Retroperitoneum: Unremarkable. Bowel: Colonic diverticulosis without CT evidence of diverticulitis. No bowel obstruction. Small hiatal hernia. The appendix is normal. Portions of the bowel are decompressed, limiting assessment. Musculoskeletal: Unremarkable. Soft tissues: Tiny fat containing umbilical hernia. IMPRESSION: 1. No acute abdominopelvic abnormality. 2. Incidental findings as detailed.
[2025-05-12] MEDS: MORPHINE SULFATE INJ 2 MG/ml SYRG IV ONE (03:23)
[2025-05-12] MEDS: MORPHINE SULFATE 4 MG/ML SYR/VIAL ONE (03:25)
[2025-05-12] MEDS ORDERED: DOCUSATE SOD 100 MG CAP PO PRN (05:00)
[2025-05-12] MEDS ORDERED: ACETAMINOPHEN 325 MG TAB PO PRN (05:00)
[2025-05-12] MEDS ORDERED: ONDANSETRON HCL 4 MG/2 ML VIAL IV PRN (05:00)
[2025-05-12] MEDS: SODIUM CHLOR 0.9% PF (SALINE LOCK) 10ML VIAL/SYR IV SCH (05:17)
[2025-05-12 05:55] LABS: Hematocrit 37.7 % (41.0-53.0); Hemoglobin 12.6 g/dL (13.5-17.5); Mean Corpuscular Hemoglobin 31.0 pg (28.0-32.0); Mean Corpuscular Volume 93.1 fL (80.0-100.0); Nucleated Red Blood Cells % 0.1 %
[2025-05-12 06:11] LABS: Albumin 4.3 g/dL (3.2-4.8); Anion Gap 13 (5-15); BUN/Creatinine Ratio 7.9 (10.0-20.0); Bilirubin, Total 0.8 mg/dL (0.2-1.0); Blood Urea Nitrogen 12 mg/dL (9-23); Calcium 9.5 mg/dL (8.7-10.4); Carbon Dioxide 21 mmol/L (20-31); Chloride 100 mmol/L (98-107); Potassium 4.1 mmol/L (3.5-5.1); Total Protein 7.6 g/dL (5.7-8.2)
--- NOTE | 2025-05-12 06:11 | DVHHP2 ---
History of Present Illness Reason for Visit: Abdominal pain History of Present Illness The patient is a 60-year-old male morbidly obese with past medical history of CVA, CHF, hyperlipidemia, ulcerative colitis, and hypertension who presented to [facility] ED with complaint of lower abdominal pain. Patient reports that he has been experiencing acute abdominal pain associated with chest wall pain, fever, intractable nausea and vomiting. Patient was seen and evaluated in the ED, laboratory data shows WBC 8.4, hemoglobin 12.4, hematocrit 37.2, platelets 283, sodium 134, potassium 3.9, BUN 11, creatinine 1.44, GFR 55, glucose 118, calcium 9.3, lipase 44, lactic acid 2.1, blood pressure 156/92, h eart rate 86, temperature 98.5 F, O2 saturation 96% on room air. Abdomen/pelvic CT showed no acute abdominopelvic abnormality. Please see medication orders section in the computer. On my assessment, patient denied chest pain, no headache, dizziness, shortness of breaths, no abdominal pain, diarrhea, nausea or vomiting at this moment, no fever, chills. Patient was admitted for further evaluation and medical management. Past Medical History CHF, CVA, High Lipids, HTN, Ulcerative colitis Past Surgical History Cholecystectomy, Tonsillectomy Family History Reviewed, noncontributory to the management of this case. Past Social History The patient lives at home, denies smoking, alcohol or illicit drugs abuse. Review of Systems Constitutional: Yes: Weakness; No: Fever, Chills, Sweats, Malaise, Other Eyes: No: Pain, Vision change, Conjunctivae inflammation, Eyelid inflammation, Other, Redness ENT: No: Ear pain, Ear discharge, Nose pain, Nose discharge, Nose congestion, Mouth pain, Mouth swelling, Throat pain, Throat swelling, Other Respiratory: No: Cough, Dry, Shortness of breath, SOB with excertion, Wheezing, Hemoptysis, Pleuritic Pain, Sputum, Wheezing, Other Cardiovascular: No: Chest Pain, Palpitations, Orthopnea, Paroxysmal Noc. Dyspnea, Edema, Lt Headedness, Other Gastrointestinal: Nausea, Vomiting, Abdominal Pain; No: Diarrhea, Constipation, Melena, Hematochezia, Other Genitourinary: No Dysuria, No Frequency, No Incontinence, No Hematuria, No Retention, No Other Musculoskeletal: No: other, neck pain, shoulder pain, arm pain, back pain, hand pain, leg pain, foot pain Skin: No: Rash, Lesions, Jaundice, Bruising, Other Neurological: No: Weakness, Numbness, Incoordination, Change in speech, Confusion, Seizures, Other Allergies: Coded Allergies: No Known Drug Allergy (Verified Allergy, Unknown, 09/09/24) Medications Current Medications Medications Dose Ordered Sig/Estevan Route Start Time Stop Time Status Last Admin Dose Admin Metoprolol Tartrate 50 mg BID PO 05/12/25 10:00 Clonidine HCl 0.1 mg Q4HP PRN PO 05/12/25 05:00 Aspirin 81 mg DAILY PO 05/12/25 10:00 Sodium Chloride 10 ml Q8HR IV 05/12/25 06:00 05/12/25 05:17 10 ML Acetaminophen/ Hydrocodone Bitart 1 tab Q4HP PRN PO 05/12/25 05:00 Ondansetron HCl 4 mg Q4HP PRN IV 05/12/25 05:00 Docusate Sodium 100 mg BIDPRN PRN PO 05/12/25 05:00 Acetaminophen 650 mg Q6HP PRN PO 05/12/25 05:00 Exam Vital Signs Vital Signs Date Time Temp Pulse Resp B/P (MAP) Pulse Ox O2 Delivery O2 Flow Rate FiO2 05/12/25 03:23 86 18 156/92 05/11/25 22:41 98.3 96 98.3 General Appearance: Alert, Oriented X3, Cooperative, No acute distress HEENT: Atraumatic, PERRLA, EOMI, Mucous membr. moist/pink Respiratory: Clear to auscultation, Normal air movement Cardiovascular: Regular rate, Normal S1, Normal S2, No murmurs Abdominal: Normal bowel sounds, Soft, No hepatospenomegaly, No masses, Other (Reports tenderness) Extremities: No clubbing, No cyanosis, No edema, Normal pulses, No tenderness/swelling Skin: No rashes, No significant lesion Neuro: Normal speech, Normal tone, Sensation intact, Cranial nerves 3-12 NL, Reflexes 2+, Other (Generalized weakness) Psych/Mental Status: Mental status NL, Mood NL Labs/Xrays Labs Test 05/12/25 05:43 05/12/25 02:18 05/12/25 00:32 Range/Units White Blood Count 7.3 4.4-10.8 10^3/uL Red Blood Count 4.05 L 4.5-5.90 10^6/uL Hemoglobin 12.6 L 13.5-17.5 g/dL Hematocrit 37.7 L 41.0-53.0 % Mean Corpuscular Volume 93.1 80.0-100.0 fL Mean Corpuscular Hemoglobin 31.0 28.0-32.0 pg Mean Corpuscular Hemoglobin Concent 33.3 32.0-36.0 g/dL Red Cell Distribution Width 14.6 H 11.8-14.3 % Platelet Count 280 140-450 10^3/uL Mean Platelet Volume 7.5 6.9-10.8 fL Neutrophils (%) (Auto) 46.9 37.0-80.0 % Lymphocytes (%) (Auto) 36.1 10.0-50.0 % Monocytes (%) (Auto) 12.9 H 0.0-12.0 % Eosinophils (%) (Auto) 3.6 0.0-7.0 % Basophils (%) (Auto) 0.5 0.0-2.0 % Neutrophils # (Auto) 3.4 1.6-8.6 10 ^3/uL Lymphocytes # (Auto) 2.6 0.4-5.4 10 ^3/uL Monocytes # (Auto) 0.9 0-1.3 10 ^3/uL Eosinophils # (Auto) 0.3 0-0.8 10 ^3/uL Basophils # (Auto) 0 0-0.2 10 ^3/uL Nucleated Red Blood Cells 0.1 % Lactic Acid Level 2.1 *H 0.4-2.0 mmol/L Lipase 44 12-53 U/L PATIENT: AMELIA PRADO ACCT: [id number] UNIT: [id number] : 1965 LOC: ER ROOM / BED: / AGE / SEX: 60 / M ADM STATUS: REG ER SERVICE 0025 ORDERING PHYSICIAN: MALLY CALLAWAY MD PROCEDURE(s): ABPL - CT AB PEL WO CON-NO ORAL OR IV REASON: Lower abdominal pain, diarrhea, history ulcerative colitis ORDER NUMBER(s): [id number], ACCESSION NUMBER(s): [id number] EXAM: CT CT AB PEL WO CON-NO ORAL OR IV HISTORY: Lower abdominal pain, diarrhea, history ulcerative colitis COMPARISON STUDY: CT CT AB PEL WO CON-NO ORAL OR IV on DOS: 03/03/25, CT CT AB PEL WO CON-NO ORAL OR IV on DOS: 11/24/24, CT CT AB PEL WO CON-NO ORAL OR IV on DOS: 09/09/24 TECHNIQUE: Multidetector CT of the abdomen and pelvis was performed from lung bases to pubic symphysis. Imaging was performed without IV contrast. Axial, coronal, and sagittal multiplanar reformats were obtained from the axial data set by the technologist. RADIATION DOSE: CTDI vol 22.6 mGy. DLP 1370.96 mGy.cm FINDINGS: Limited evaluation of the solid organs in the absence of IV contrast. Evaluation is also degraded by motion artifact. Lungs: The lung bases are clear. Liver: Diffuse hypoattenuation of the liver suggestive of hepatic steatosis. Spleen: Unremarkable. Pancreas: Unremarkable. Gallbladder: Prior cholecystectomy. Adrenals: Unremarkable Kidneys: Unremarkable. Pelvic Viscera: Mild prostatomegaly. Vasculature: Unremarkable. Retroperitoneum: Unremarkable. Bowel: Colonic diverticulosis without CT evidence of diverticulitis. No bowel obstruction. Small hiatal hernia. The appendix is normal. Portions of the bowel are decompressed, limiting assessment. Musculoskeletal: Unremarkable. Soft tissues: Tiny fat containing umbilical hernia. IMPRESSION: 1. No acute abdominopelvic abnormality. 2. Incidental findings as detailed. SEPSIS Sepsis Screen Date sepsis recognized/suspect: May 11, 2025 Time Sepsis recognized/suspect: 2019 Recent Procedure: No On Antibiotic Therapy: No Respiratory Rate >20: No Heart Rate >90: No Temp<36 C (96.8 F) or >38.3 C: No SBP <90 or MAP <65 mmHG: No New Acute Mental Status Change: No Is the patient on CPAP, BIPAP,: No Physician Orders Urinalysis (05/12/25 00:25) Ct Ab Pel Wo Con-No Oral Or Iv (05/12/25 00:25) Comprehensive Metabolic Panel (05/12/25 04:59) Metoprolol Tartrate Tablet (Lopressor Ta (05/12/25 10:00) Clonidine Hcl Tablet (Catapres Tablet) (05/12/25 05:00) Aspirin Chewable Tablet (05/12/25 10:00) B-Type Natriuretic Peptide (05/12/25 04:59) Allergies (05/12/25 04:59) Code Status (05/12/25 04:59) Sodium Chloride Lock (Saline Lock Ns) (05/12/25 06:00) Oxygen Per Hour (05/12/25 04:59) Hydrocodone-Acet 5/325mg Tab ([place] 5/32 (05/12/25 05:00) Ondansetron Hcl (Zofran) (05/12/25 05:00) Docusate Sodium Capsule (Colace Capsule) (05/12/25 05:00) Complete Blood Count (05/13/25 04:00) Comprehensive Metabolic Panel (05/13/25 04:00) Condition: Serious (05/12/25 04:59) Acetaminophen Tablet (Tylenol Tablet) (05/12/25 05:00) Clear Liq Diet (05/12/25 Breakfast) Bedrest With Bathroom Privileg (05/12/25 04:59) Maintain Bed Rest (05/12/25 04:59) Sequential Compression Device (05/12/25 ) Admit (05/12/25 06:10) Nitroglycerin Sublingual (Ntrostat Subli (05/12/25 06:15) Morphine Sulfate Injection (05/12/25 06:15) Notify Md Of Changes From Base (05/12/25 06:10) Emergency Dysrhythmia Protocol (05/12/25 06:10) Oxygen By Nasal Cannula (05/12/25 06:10) Vital Signs Date Time Temp Pulse Resp B/P (MAP) Pulse Ox O2 Delivery O2 Flow Rate FiO2 05/12/25 03:23 86 18 156/92 05/11/25 22:41 98.3 93 14 134/81 (98) 96 98.3 Laboratory Tests Test 05/12/25 00:32 05/12/25 02:18 05/12/25 05:43 Lactic Acid Level 2.4 mmol/L (0.4-2.0) *H 2.1 mmol/L (0.4-2.0) *H White Blood Count 8.4 10^3/uL (4.4-10.8) 7.3 10^3/uL (4.4-10.8) Medications Medications Dose Ordered Sig/Estevan Route Start Time Stop Time Status Last Admin Dose Admin Morphine Sulfate 2 mg ONCE ONCE IV 05/12/25 00:30 05/12/25 00:31 DC 05/12/25 03:23 2 MG Sodium Chloride 10 ml Q8HR IV 05/12/25 06:00 05/12/25 05:17 10 ML Assessment/Plan Assessment/Plan Acute abdominal pain Morbid obesity Intractable nausea and vomiting Generalized weakness Plan 1. Admit to med surge unit 2. Breathing treatment 3. Pain control management 4. Management of fluids and electrolytes 5. Consultation for hospitalist 6. Diagnostic tests abdomen/pelvis CT 7. DVT prophylaxis on SCDs 8. Repeat labs CBC, CMP in a.m. 9. Continue with current medical management 10. Treatment plan discussed with patient and RN. Patient verbalized understanding. Plan discussed with: Patient, Other (RN) My Orders Orders - LEIGH KIM DNP Procedure Category Date Status Time Comprehensive LAB 05/12/25 In Process Metabolic Panel 04:59 Metoprolol Tartrate PHA 05/12/25 In Process Tablet (Lopressor Ta 10:00 Clonidine Hcl Tablet PHA 05/12/25 In Process (Catapres Tablet) 05:00 Aspirin Chewable PHA 05/12/25 In Process Tablet 10:00 B-Type Natriuretic LAB 05/12/25 In Process Peptide 04:59 Allergies CÉSAR 05/12/25 In Process 04:59 Code Status CODE 05/12/25 Transmitted 04:59 Sodium Chloride Lock PHA 05/12/25 In Process (Saline Lock Ns) 06:00 Oxygen Per Hour RT 05/12/25 Transmitted 04:59 Hydrocodone-Acet PHA 05/12/25 In Process 5/325mg Tab ([place] 05:00 Ondansetron Hcl PHA 05/12/25 In Process (Zofran) 05:00 Docusate Sodium PHA 05/12/25 In Process Capsule (Colace 05:00 Complete Blood Count LAB 05/13/25 Verified 04:00 Comprehensive LAB 05/13/25 Verified Metabolic Panel 04:00 Condition: Serious CÉSAR 05/12/25 In Process 04:59 Acetaminophen Tablet PHA 05/12/25 In Process (Tylenol Tablet) 05:00 Clear Liq Diet DIET 05/12/25 Transmitted Breakfast Bedrest With Bathroom CÉSAR 05/12/25 In Process Privileg 04:59 Maintain Bed Rest CÉSAR 05/12/25 In Process 04:59 Sequential CÉSAR 05/12/25 In Process Compression Device Admit ADMIT 05/12/25 Verified 06:10 Nitroglycerin [facility] 05/12/25 Verified Sublingual (Ntrostat 06:15 Morphine Sulfate [facility] 05/12/25 Verified Injection 06:15 Notify Md Of Changes [facility] 05/12/25 Verified From Base 06:10 Emergency Dysrhythmia [facility] 05/12/25 Verified Protocol 06:10 Oxygen By Nasal RT 05/12/25 Verified Cannula 06:10 Problem List: (1) Acute abdominal pain (2) Morbid obesity (3) Intractable nausea and vomiting (4) Generalized weakness Date of Service: May 12, 2025 Billing Provider: LEIGH KIM DNP Common Visit Codes: [id number] INP/OBS CARE (HIGH) LEIGH KIM DNP May 12, 2025 06:11
[2025-05-12 06:13] LABS: Alanine Aminotransferase 62 U/L (7-40); Alkaline Phosphatase 126 U/L (46-116); Glucose 110 mg/dL (74-106); Sodium 134 mmol/L (136-145)
[2025-05-12] MEDS ORDERED: NITROGLYCERIN 0.4 MG SL TAB SL PRN (06:15)
[2025-05-12] MEDS ORDERED: MORPHINE SULFATE INJ 2 MG/ml SYRG IV PRN (06:15)
[2025-05-12] MEDS: HYDROcodone-ACET 5/325MG TAB PO PRN (06:46)
[2025-05-12] MEDS: METOPROLOL TARTRATE 50 MG TAB PO SCH (10:33)
[2025-05-12 10:35] LABS: Urine Protein, UAD Negative (Negative)
--- NOTE | 2025-05-12 12:46 | DVHPN2 ---
Changes from previous H/P or p: No Changes Eyes: No Pain, No Vision change, No Conjunctivae inflammation, No Eyelid inflammation, No Other, No Redness ENT: No Ear pain, No Ear discharge, No Nose pain, No Nose discharge, No Nose congestion, No Mouth pain, No Mouth swelling, No Throat pain, No Throat swelling, No Other Cardiovascular: No Chest Pain, No Palpitations, No Orthopnea, No Paroxysmal Noc. Dyspnea, No Edema, No Lt Headedness, No Other Respiratory: No Cough, No Dry, No Shortness of breath, No SOB with excertion, No Wheezing, No Hemoptysis, No Pleuritic Pain, No Sputum, No Other Gastrointestinal: Nausea, Vomiting, Abdominal Pain; No Diarrhea, No Constipation, No Melena, No Hematochezia, No Other Genitourinary: No Dysuria, No Frequency, No Incontinence, No Hematuria, No Retention, No Other Musculoskeletal: No other, No neck pain, No shoulder pain, No arm pain, No back pain, No hand pain, No leg pain, No foot pain Skin: No Rash, No Lesions, No Jaundice, No Bruising, No Other Objective Vitals Vital Signs Date Time Temp Pulse Resp B/P (MAP) Pulse Ox O2 Delivery O2 Flow Rate FiO2 05/12/25 10:33 90 136/85 05/12/25 08:30 97.3 17 97 97.3 05/12/25 08:26 Room Air* 0 21 Medications Current Medications Medications Dose Ordered Sig/Estevan Route Start Time Stop Time Status Last Admin Dose Admin Metoprolol Tartrate 50 mg BID PO 05/12/25 10:00 05/12/25 10:33 50 MG Clonidine HCl 0.1 mg Q4HP PRN PO 05/12/25 05:00 Aspirin 81 mg DAILY PO 05/12/25 10:00 05/12/25 10:34 81 MG Sodium Chloride 10 ml Q8HR IV 05/12/25 06:00 05/12/25 05:17 10 ML Acetaminophen/ Hydrocodone Bitart 1 tab Q4HP PRN PO 05/12/25 05:00 05/12/25 06:46 1 TAB Ondansetron HCl 4 mg Q4HP PRN IV 05/12/25 05:00 Docusate Sodium 100 mg BIDPRN PRN PO 05/12/25 05:00 Acetaminophen 650 mg Q6HP PRN PO 05/12/25 05:00 Nitroglycerin 0.4 mg Q5MINP PRN SL 05/12/25 06:15 Morphine Sulfate 2 mg Q30M PRN IV 05/12/25 06:15 Laboratory Results Laboratory Tests 05/12/25 05:43 Chemistry Test 05/12/25 00:32 05/12/25 05:43 Calcium Level 9.3 mg/dL (8.7-10.4) 9.5 mg/dL (8.7-10.4) Albumin 4.3 g/dL (3.2-4.8) Total Protein 7.6 g/dL (5.7-8.2) Lipid panel Test 05/12/25 00:32 Lipase 44 U/L (12-53) Cardiac Markers Test 05/12/25 00:32 B-Type Natriuretic Peptide 2.33 pg/mL (0-100) LFT Test 05/12/25 05:43 Alanine Aminotransferase (ALT) 62 U/L (7-40) H Alkaline Phosphatase 126 U/L (46-116) H Aspartate Amino Transferase (AST) 38 U/L (13-40) Total Bilirubin 0.8 mg/dL (0.2-1.0) Urinalysis Test 05/12/25 10:00 Urine Color Yellow (Yellow) Urine Clarity Clear (Clear) Urine pH 5.0 (5.0-9.0) Urine Specific [place] 1.018 (1.001-1.035) Urine Protein Negative (Negative) Urine Ketones Negative (Negative) Urine Blood Negative /uL (Negative) Urine Nitrite Negative (Negative) Urine Bilirubin Negative (Negative) Urine Urobilinogen Normal mg/dL (Negative) Urine Leukocyte Esterase Negative /uL (Negative) Urine RBC None seen /hpf (0 - 3) Urine Microscopic WBC 1 /HPF (0-3) Urine Squamous Epithelial Cells None seen /hpf (<5) Urine Bacteria None seen /hpf (None Seen) Urine Hyaline Casts Few /lpf (0 - 2) Urine Glucose 1+ mg/dL (Normal) H Labs and/or images reviewed: Labs reviewed by me, Image(s) reviewed by me Assessment/Plan Assessment/Plan acute exacerbation of Ulcerative colitis: Rocephin Flagyl Solu-Medrol TUNG on CKD,hemodynamically mediated CHF with EF 50% diverticulosis without diverticultits hepatic steatosis bilateral inguinal hernia,umbilical hernia transamnitis hyperlipidemia marijuana use disorder past history of DVT and PE Plan discussed with: Patient Date of Service: May 12, 2025 Billing Provider: NEAL JOHNSTON MD Common Visit Codes: [id number] INP/OBS CARE(HIGH) NEAL JOHNSTON MD May 12, 2025 12:45
[2025-05-12] MEDS: methylPREDNISolone SOD SUCC 125 MG/2 ML VL IV SCH (14:22)
[2025-05-13] VITALS (7 sets, daily range): BP systolic 117–134; BP diastolic 72–84; PULSE 60–66; RESP 18–20; TEMP 97.5–98.3; O2SAT 94–95
[2025-05-13 06:47] LABS: Hematocrit 33.7 % (41.0-53.0); Hemoglobin 11.4 g/dL (13.5-17.5); Mean Corpuscular Hemoglobin 31.2 pg (28.0-32.0); Mean Corpuscular Volume 92.1 fL (80.0-100.0); Nucleated Red Blood Cells % 0.0 %
[2025-05-13 06:52] LABS: Alanine Aminotransferase 55 U/L (7-40); Albumin 3.9 g/dL (3.2-4.8); Alkaline Phosphatase 108 U/L (46-116); Anion Gap 11 (5-15); BUN/Creatinine Ratio 9.8 (10.0-20.0); Blood Urea Nitrogen 12 mg/dL (9-23); Calcium 9.0 mg/dL (8.7-10.4); Carbon Dioxide 20 mmol/L (20-31); Chloride 104 mmol/L (98-107); Glucose 144 mg/dL (74-106); Potassium 4.6 mmol/L (3.5-5.1); Sodium 135 mmol/L (136-145); Total Protein 6.9 g/dL (5.7-8.2)
[2025-05-13 06:53] LABS: Bilirubin, Total 0.7 mg/dL (0.2-1.0)
--- NOTE | 2025-05-13 07:55 | DVHPN2 ---
Changes from previous H/P or p: No Changes Eyes: No Pain, No Vision change, No Conjunctivae inflammation, No Eyelid inflammation, No Other, No Redness ENT: No Ear pain, No Ear discharge, No Nose pain, No Nose discharge, No Nose congestion, No Mouth pain, No Mouth swelling, No Throat pain, No Throat swelling, No Other Cardiovascular: No Chest Pain, No Palpitations, No Orthopnea, No Paroxysmal Noc. Dyspnea, No Edema, No Lt Headedness, No Other Respiratory: No Cough, No Dry, No Shortness of breath, No SOB with excertion, No Wheezing, No Hemoptysis, No Pleuritic Pain, No Sputum, No Other Gastrointestinal: Nausea, Vomiting, Abdominal Pain; No Diarrhea, No Constipation, No Melena, No Hematochezia, No Other Genitourinary: No Dysuria, No Frequency, No Incontinence, No Hematuria, No Retention, No Other Musculoskeletal: No other, No neck pain, No shoulder pain, No arm pain, No back pain, No hand pain, No leg pain, No foot pain Skin: No Rash, No Lesions, No Jaundice, No Bruising, No Other Objective Vitals Vital Signs Date Time Temp Pulse Resp B/P (MAP) Pulse Ox O2 Delivery O2 Flow Rate FiO2 05/13/25 05:00 98.3 66 20 127/77 (94) 94 98.3 05/12/25 20:00 Room Air* 0 21 Intake/Output Intake and Output 05/13/25 07:00 Intake Total 1850 ml Output Total 2480 ml Balance -630 ml Intake Oral 1500 ml IV Total 350 ml Output Urine Total 2480 ml # Bowel Movements 1 Medications Current Medications Medications Dose Ordered Sig/Estevan Route Start Time Stop Time Status Last Admin Dose Admin Metoprolol Tartrate 50 mg BID PO 05/12/25 10:00 05/12/25 21:22 50 MG Clonidine HCl 0.1 mg Q4HP PRN PO 05/12/25 05:00 Aspirin 81 mg DAILY PO 05/12/25 10:00 05/12/25 10:34 81 MG Sodium Chloride 10 ml Q8HR IV 05/12/25 06:00 05/13/25 05:58 10 ML Acetaminophen/ Hydrocodone Bitart 1 tab Q4HP PRN PO 05/12/25 05:00 05/13/25 03:22 1 TAB Ondansetron HCl 4 mg Q4HP PRN IV 05/12/25 05:00 Docusate Sodium 100 mg BIDPRN PRN PO 05/12/25 05:00 Acetaminophen 650 mg Q6HP PRN PO 05/12/25 05:00 Nitroglycerin 0.4 mg Q5MINP PRN SL 05/12/25 06:15 Morphine Sulfate 2 mg Q30M PRN IV 05/12/25 06:15 Ceftriaxone Sodium 50 ml @ 100 mls/hr DAILY@09 IV 05/13/25 09:00 Metronidazole 100 ml @ 100 mls/hr Q8HR IV 05/12/25 14:00 05/13/25 05:58 100 MLS/HR Methylprednisolone Sodium Succinate 60 mg BID IV 05/12/25 12:57 05/12/25 21:20 60 MG Laboratory Results Laboratory Tests 05/13/25 05:24 Chemistry Test 05/13/25 05:24 Albumin 3.9 g/dL (3.2-4.8) Calcium Level 9.0 mg/dL (8.7-10.4) Total Protein 6.9 g/dL (5.7-8.2) LFT Test 05/13/25 05:24 Alanine Aminotransferase (ALT) 55 U/L (7-40) H Alkaline Phosphatase 108 U/L (46-116) Aspartate Amino Transferase (AST) 33 U/L (13-40) Total Bilirubin 0.7 mg/dL (0.2-1.0) Urinalysis Test 05/12/25 10:00 Urine Color Yellow (Yellow) Urine Clarity Clear (Clear) Urine pH 5.0 (5.0-9.0) Urine Specific [place] 1.018 (1.001-1.035) Urine Protein Negative (Negative) Urine Ketones Negative (Negative) Urine Blood Negative /uL (Negative) Urine Nitrite Negative (Negative) Urine Bilirubin Negative (Negative) Urine Urobilinogen Normal mg/dL (Negative) Urine Leukocyte Esterase Negative /uL (Negative) Urine RBC None seen /hpf (0 - 3) Urine Microscopic WBC 1 /HPF (0-3) Urine Squamous Epithelial Cells None seen /hpf (<5) Urine Bacteria None seen /hpf (None Seen) Urine Hyaline Casts Few /lpf (0 - 2) Urine Glucose 1+ mg/dL (Normal) H Labs and/or images reviewed: Labs reviewed by me, Image(s) reviewed by me Assessment/Plan Assessment/Plan acute exacerbation of Ulcerative colitis: Rocephin Flagyl Solu-Medrol TUNG on CKD,hemodynamically mediated CHF with EF 50% diverticulosis without diverticultits hepatic steatosis bilateral inguinal hernia,umbilical hernia transamnitis hyperlipidemia marijuana use disorder History of DVT and PE Patient feeling better Started on soft diet and advance as tolerated Possible DC Friday or Friday Plan discussed with: Patient My Orders Orders - NEAL JOHNSTON MD Procedure Category Date Status Time Ceftriaxone 1gm/50ml PHA 05/13/25 In Process (Rocephin) 09:00 Metronidazole PHA 05/12/25 In Process 500mg/100ml (Flagyl 14:00 Methylprednisolone PHA 05/12/25 In Process Sod Succ (Solu Medrol 12:57 Date of Service: May 13, 2025 Billing Provider: NEAL JOHNSTON MD Common Visit Codes: [id number] INP/OBS CARE(HIGH) NEAL JOHNSTON MD May 13, 2025 07:54
[2025-05-14] VITALS (7 sets, daily range): BP systolic 100–143; BP diastolic 53–82; PULSE 49–67; RESP 18–20; TEMP 97–98; O2SAT 93–100
[2025-05-14] MEDS ORDERED: RIV20T PO (20:43)
[2025-05-14] MEDS ORDERED: HYDR-4902 PO (20:43)
[2025-05-14] MEDS ORDERED: MESA800T9 PO (20:43)
[2025-05-14] MEDS ORDERED: PANT40TA2 PO (20:43)
[2025-05-14] MEDS ORDERED: FOLITAB22 PO (20:43)
[2025-05-14] MEDS ORDERED: [UNRECOGNIZED DRUG - CODE] IJ (20:43)
[2025-05-15] VITALS (11 sets, daily range): BP systolic 135–155; BP diastolic 60–81; PULSE 44–61; RESP 18–20; TEMP 97.5–98.9; O2SAT 92–98
[2025-05-15] MEDS: RIVAROXABAN 20 MG TAB PO SCH (09:47)
[2025-05-15] MEDS ORDERED: PRED20TA2 PO (14:39)
--- NOTE | 2025-05-15 16:15 | DVHDS2 ---
Discharge Summary Date of Admission May 12, 2025 at 06:10 Date of Discharge: May 15, 2025 Labs/Diagnostic Data: Laboratory Results Test 05/13/25 05:24 05/12/25 10:00 05/12/25 02:18 05/12/25 00:32 White Blood Count 7.5 10^3/uL (4.4-10.8) Red Blood Count 3.65 10^6/uL (4.5-5.90) Hemoglobin 11.4 g/dL (13.5-17.5) Hematocrit 33.7 % (41.0-53.0) Mean Corpuscular Volume 92.1 fL (80.0-100.0) Mean Corpuscular Hemoglobin 31.2 pg (28.0-32.0) Mean Corpuscular Hemoglobin Concent 33.9 g/dL (32.0-36.0) Red Cell Distribution Width 14.7 % (11.8-14.3) Platelet Count 271 10^3/uL (140-450) Mean Platelet Volume 8.2 fL (6.9-10.8) Neutrophils (%) (Auto) 85.5 % (37.0-80.0) Lymphocytes (%) (Auto) 11.7 % (10.0-50.0) Monocytes (%) (Auto) 2.6 % (0.0-12.0) Eosinophils (%) (Auto) 0.0 % (0.0-7.0) Basophils (%) (Auto) 0.2 % (0.0-2.0) Neutrophils # (Auto) 6.4 10 ^3/uL (1.6-8.6) Lymphocytes # (Auto) 0.9 10 ^3/uL (0.4-5.4) Monocytes # (Auto) 0.2 10 ^3/uL (0-1.3) Eosinophils # (Auto) 0 10 ^3/uL (0-0.8) Basophils # (Auto) 0 10 ^3/uL (0-0.2) Nucleated Red Blood Cells 0.0 % Sodium Level 135 mmol/L (136-145) Potassium Level 4.6 mmol/L (3.5-5.1) Chloride Level 104 mmol/L (98-107) Carbon Dioxide Level 20 mmol/L (20-31) Anion Gap 11 (5-15) Blood Urea Nitrogen 12 mg/dL (9-23) Creatinine 1.22 mg/dL (0.700-1.30) Glomerular Filtration Rate Calc 67 mL/min (>90) BUN/Creatinine Ratio 9.8 (10.0-20.0) Serum Glucose 144 mg/dL (74-106) Calcium Level 9.0 mg/dL (8.7-10.4) Total Bilirubin 0.7 mg/dL (0.2-1.0) Aspartate Amino Transferase (AST) 33 U/L (13-40) Alanine Aminotransferase (ALT) 55 U/L (7-40) Alkaline Phosphatase 108 U/L (46-116) Total Protein 6.9 g/dL (5.7-8.2) Albumin 3.9 g/dL (3.2-4.8) Urine Color Yellow (Yellow) Urine Clarity Clear (Clear) Urine pH 5.0 (5.0-9.0) Urine Specific [place] 1.018 (1.001-1.035) Urine Protein Negative (Negative) Urine Ketones Negative (Negative) Urine Blood Negative /uL (Negative) Urine Nitrite Negative (Negative) Urine Bilirubin Negative (Negative) Urine Urobilinogen Normal mg/dL (Negative) Urine Leukocyte Esterase Negative /uL (Negative) Urine RBC None seen /hpf (0 - 3) Urine Microscopic WBC 1 /HPF (0-3) Urine Squamous Epithelial Cells None seen /hpf (<5) Urine Bacteria None seen /hpf (None Seen) Urine Hyaline Casts Few /lpf (0 - 2) Urine Glucose 1+ mg/dL (Normal) Lactic Acid Level 2.1 mmol/L (0.4-2.0) B-Type Natriuretic Peptide 2.33 pg/mL (0-100) Lipase 44 U/L (12-53) Other Laboratory Tests 05/13/25 05:24 Final Diagnosis/Problems List [facility] flare Discharge Disposition: Home Discharge Instruct/Medications Diet: Regular Activity: No Restrictions, As Tolerated Scheduled Atorvastatin Calcium (Atorvastatin Calcium), 1 TAB PO DAILY, (Reported) Brimonidine Tartrate (Brimonidine Tartrate), DROP EACHEYE UD, (Reported) Bumetanide (Bumetanide), 1 TAB PO DAILY, (Reported) Carboxymethylcellulose Sodium (Refresh Tears), DROP EACHEYE UD, (Reported) Carvedilol (Carvedilol), 1 TAB PO BID, (Reported) Carvedilol (Carvedilol), 1 TAB PO BID, (Reported) Chlorpromazine HCl (Chlorpromazine HCl), 50 MG IJ BID, (Reported) Dorzolamide-Timolol (Dorzolamide Hcl/Timolol M), DROP EACHEYE UD, (Reported) Empagliflozin (Jardiance), 1 TAB PO DAILY, (Reported) Empagliflozin (Jardiance), 10 MG PO DAILY, (Reported) Folic Qrfz-Lsqlvbyoqh-Duyhezmf (Folbic), 1 TAB PO DAILY, (Reported) Hydralazine Hcl (Hydralazine Hcl), 25 MG PO BID, (Reported) Latanoprost (Latanoprost), DROP EACHEYE UD, (Reported) Mesalamine (Mesalamine Dr), 2 CAP PO TID, (Reported) Mesalamine (Mesalamine Dr), 1,800 MG PO BID, (Reported) Methylprednisolone (Medrol Dosepak), 4 MG PO UD Metoprolol Succinate (Metoprolol Succinate Er), 1 TAB PO DAILY Multiple Vitamins W/ Minerals (Mens Multivitamin), 1 TAB PO DAILY, (Reported) Pantoprazole Sodium Sesquihydr (Pantoprazole Sodium), 1 TAB PO DAILY, (Reported) Pantoprazole Sodium Sesquihydr (Protonix), 40 MG PO BID, (Reported) Prednisone (Prednisone), 20 MG PO DAILY Rivaroxaban (Xarelto Tablet), 20 MG PO DAILY, (Reported) Sacubitril-Valsartan (Entresto 97-103 mg), 1 TAB PO BID, (Reported) Sacubitril-Valsartan (Entresto 97-103 mg), 1 TAB PO BID, (Reported) Sacubitril-Valsartan (Entresto 97-103 mg), 1 TAB PO BID, (Reported) Spironolactone (Spironolactone), 1 TAB PO DAILY, (Reported) Miscellaneous Medications Homeopathic Products (Theraworx/Muscle Cramps), 1 LIQ EX, (Reported) Hydrocodone-Acetaminophen (Hydrocodone Bitartrate/AC 5-325 mg), 1 TAB PO, (Reported) Warfarin Sodium (Warfarin Sodium), 5 MG PO, (Reported) Discharge Statement: "Patient was advised to return to the ER or call 911 if any headaches, dizziness, shortness of breath, chest pain, abdominal pain, bleeding, fevers, or worsening of medical condition. Patient was counseled about treatment plan, medications, possible side effects, patientverbalized understanding. All questions were answered to the best of my ability. This discharge took greater then 30 minutes in planning, reviewing documentation, counseling the patient, and discussing with other team members." ASSESSMENT ASSESSMENT Assessment [facility] flare Date of Service: May 15, 2025 Billing Provider: ARACELIS GUTIERREZ MD Common Visit Codes: 15446-NTL/OBS DISCH DAY >30min ARACELIS GUTIERREZ MD May 15, 2025 16:15
== END 2025-05-15 21:10 | disposition home or self-care (01) | DRG 245 ==
LOC: EDSEX 20:10 → ER 20:10 → EDBD 20:10 → OVERFLOW 05-12 06:10 → EDUNIT# 05-12 06:10 → CENTRAL 05-12 08:53
PROVIDERS: ADMIT Family Medicine; ATTEND Family Medicine
DX: K51.90 Ulcerative colitis, unspecified, without complications (principal); I50.9 Heart failure, unspecified; I13.0 Hypertensive heart and chronic kidney disease with heart failure and stage 1 through stage 4 chronic kidney disease, or unspecified chronic kidney disease; N17.9 Acute kidney failure, unspecified; E66.01 Morbid (severe) obesity due to excess calories; K76.0 Fatty (change of) liver, not elsewhere classified; N18.9 Chronic kidney disease, unspecified; F12.10 Cannabis abuse, uncomplicated; K40.20 Bilateral inguinal hernia, without obstruction or gangrene, not specified as recurrent; K42.9 Umbilical hernia without obstruction or gangrene; E78.5 Hyperlipidemia, unspecified; K57.30 Diverticulosis of large intestine without perforation or abscess without bleeding; Z90.49 Acquired absence of other specified parts of digestive tract; Z86.73 Personal history of transient ischemic attack (TIA), and cerebral infarction without residual deficits; Z86.718 Personal history of other venous thrombosis and embolism; Z86.711 Personal history of pulmonary embolism; Z79.899 Other long term (current) drug therapy
CPT/HCPCS: 36415; 74176; 80048; 80053; 81001; 83605; 83690; 83880; 85025; 87081; 96374; G0378; J3490